=== PATIENT | male | born 1990 | race Caucasian/White ===

== ENCOUNTER → 2024-07-15 | Outpatient (CLI) | payer OTHER | LOC: M OUTALCOH 08:18 | PROVIDERS: ATTEND Psychiatry & Neurology Psychiatry | DX: Z03.89 Encounter for observation for other suspected diseases and conditions ruled out (principal) ==

== ENCOUNTER 2024-07-26 08:18 | Outpatient (RCR) | payer OTHER | END 2024-08-19 | LOC: M OUTALCOH 08:18 | PROVIDERS: ATTEND Psychiatry & Neurology Psychiatry | DX: Z03.89 Encounter for observation for other suspected diseases and conditions ruled out (principal) ==